=== PATIENT | female | born 1955 ===

== ENCOUNTER 2020-09-10 16:38 | Emergency (ER) | payer MEDICARE, SELFPAY ==
[2020-09-10] VITALS (9 sets, daily range): BP systolic 89–124; BP diastolic 38–62; PULSE 60–73; RESP 13–37; TEMP 36.3; O2SAT 96–99
--- NOTE | 2020-09-10 16:55 | ED.GENADUL_ITS ---
Discharge Plan Disposition Patient Disposition: HOME Condition: Stable Discharge Details Clinical Impression: Flank pain Primary Care Provider: Unknown,Unknown ED Provider: Michelle Calzada Home Meds and New Rx's Prescriptions: New oxycodone-acetaminophen [Percocet] 5-325 mg tablet 1 tab PO Q6H PRN (Reason: pain) Qty: 7 RF: 0 Continued lisinopril 20 mg Tablet 20 mg PO DAILY RF: 0 clonazepam [Klonopin] 1 mg Tablet 1 mg PO BID RF: 0 dicyclomine 20 mg Tablet 20 mg PO TID RF: 0 metoprolol tartrate 50 mg Tablet 50 mg PO BID RF: 0 duloxetine [Cymbalta] 60 mg Capsule,Delayed Release(Dr/Ec) 120 mg PO DAILY RF: 0 cholecalciferol (vitamin D3) [Vitamin D3] 50 mcg (2,000 unit) Tablet 150 mcg PO DAILY RF: 0 Discharge Instructions Instructions: Flank Pain (ED) Additional Instructions: Follow up with primary care provider in 3-5 days. Return to ED sooner if any worsening or concerns. Increase oral fluids. To the CT showed that there was no definite mass seen in the pancreas. There was a 2 cm simple cyst in the right kidney and a 1.2 cm simple cyst in the left kidney. It will be reread by our radiologist during business hours. Please be seen sooner for any continued rectal bleeding, worsening pain or any concerns. Please take Tylenol or Ibuprofen with food every 4-6 hours as needed for pain and swelling. Medical Decision Making 64-year-old female usually receives her care at [facility] presents here via EMS due to [facility] diversion with increasing left flank pain and bloody stools. Patient states she has had increased pain for the last 2 to 3 days and worsening bloody stools. She states that she was diagnosed with a pancreatic tumor in May. She does report increased weakness and does not take any pain medications at home. She received 100 mcg of fentanyl by EMS prior to arrival. She has a past medical history of hypertension, anxiety. Exam: CT Abdomen And Pelvis With Contrast Exam date and time: 09/10/2020 6:48 PM Age: 64 years old Clinical indication: Other: Gi bleed; Patient HX: HX of pancreatic tumor COMPARISON: No relevant prior studies available. FINDINGS: Lungs: Bibasilar atelectasis Liver: Normal. No mass. Gallbladder and bile ducts: Normal. No calcified stones. No ductal dilation. Pancreas: No definite mass in the pancreas.. Dilatation of the pancreatic duct Spleen: Normal. No splenomegaly. Adrenal glands: Normal. No mass. Kidneys and ureters: 2 cm simple cyst right kidney. 1.2 cm simple cyst left kidney Stomach and bowel: Unremarkable. No obstruction. No mucosal thickening. Appendix: Normal appendix Intraperitoneal space: Unremarkable. No free air. No significant fluid collection. Vasculature: Unremarkable. No abdominal aortic aneurysm. Lymph nodes: Unremarkable. No enlarged lymph nodes. Urinary bladder: Unremarkable as visualized. Reproductive: Unremarkable as visualized. Bones/joints: There is a bilateral spondylolysis defect of the L5-S1 level, with grade 2 spondylolisthesis Soft tissues: Unremarkable. IMPRESSION: No definite mass in the pancreas. Recommend comparison with prior studies that demonstrated the tumor . There is a bilateral spondylolysis defect of the L5-S1 level, with grade 2 spondylolisthesis. Recommend orthopedic consult Thank you for allowing us to participate in the care of your patient. Dictated and Authenticated by: Nupur Younger MD CBC shows a white blood cell count of 12.50, hemoglobin is 15.5, hematocrit 44.6, PT is 10.4, INR 1.0, sodium 132, potassium 3.6, BUN 13, creatinine 1.10, GFR is 50, glucose is 112 serial troponins less than 0.05. Lipase is 183. Urine is squamous cell contaminated. Discussed CT results and labs with patient. Discussed bilateral cysts noted to the kidneys. No definite mass was seen on the pancreas. Instructed to follow- up in [facility] where she receives her care. Return to the ED for any worsening. Patient verbalized understanding HPI General Mode of arrival: EMS . Date/Time Provider Initiated Documentation: 09/10/20 16:45 . Limitations to Documentation: no limitations . Information obtained by: patient and EMS . HPI Narrative: 64-year-old female usually receives her care at [facility] presents here via EMS due to [facility] diversion with increasing left flank pain and bloody stools. Patient states she has had increased pain for the last 2 to 3 days and worsening bloody stools. She states that she was diagnosed with a pancreatic tumor in May. She does report increased weakness and does not take any pain medications at home. She received 100 mcg of fentanyl by EMS prior to arrival. She has a past medical history of hypertension, anxiety. Related Data Home Medications Medication Instructions Recorded Confirmed cholecalciferol (vitamin D3) 150 mcg PO DAILY 09/10/20 09/10/20 [Vitamin D3] clonazepam [Klonopin] 1 mg PO BID 09/10/20 09/10/20 dicyclomine 20 mg PO TID 09/10/20 09/10/20 duloxetine [Cymbalta] 120 mg PO DAILY 09/10/20 09/10/20 lisinopril 20 mg PO DAILY 09/10/20 09/10/20 metoprolol tartrate 50 mg PO BID 09/10/20 09/10/20 oxycodone-acetaminophen [Percocet] 1 tab PO Q6H PRN #7 tab 09/10/20 Previous Rx's Medication Instructions Recorded oxycodone-acetaminophen [Percocet] 1 tab PO Q6H PRN #7 tab 09/10/20 Allergies Allergy/AdvReac Type Severity Reaction Status Date / Time ketorolac [From Toradol] Allergy Hives Unverified 09/10/20 16:46 metoclopramide [From Reglan] Allergy Psychosis Unverified 09/10/20 16:46 promethazine [From Phenergan] Allergy Psychosis Unverified 09/10/20 16:46 General Stated Complaint: Abd Prob NATALIE: 2 Review of Systems Narrative: Constitutional: Negative for weight loss, alert and oriented, well groomed, normal body habitus, appears comfortable. Positive generalized weakness. HEENT: Denies trauma, headaches, blurry vision, nasal discharge, sore throat, trouble swallowing. Chest: Denies chest pain, palpitations, irregular rhythm, hypertension. Respiratory: Denies Shortness of breath, cough, hemoptysis. GI: Denies abdominal pain, nausea, vomiting, diarrhea, constipation. : Denies dysuria, hematuria, positive left flank pain positive rectal bleeding. Neuro: Denies dizziness, blurry vision, syncope, headache or facial numbness. Hematologic: Denies easy bruising, intolerance to heat or cold, hair loss. [facility] Social History Smoking/Tobacco Use Status: Current every day Smoking risk assessment performed?: Yes Alcohol Intake: never Substance use type: does not use Do you feel safe at home: Yes Do you feel safe in your relationship?: Yes Exam Narrative Exam Narrative: Constitutional: Alert and oriented x3. Appears stated age. Normal body habitus. Head: Normocephalic, no trauma. Eyes: Pupils PERRLA, Red reflex noted, EOM's intact. Eyelids symmetrical without lesions, discharge, or swelling. ENT: Bilateral TM's WNL, External ear normal to inspection, no mastoid TTP, swelling, or erythema, Nasal turbinates WNL, no nasal discharge. Normal dentition, Posterior pharynx WNL, no exudate. Chest: RRR, Normal S1, S2, distal pulses intact. Resp: Lungs clear to auscultation bilaterally, no wheezes, rales, or rhonchi. Abdomen: Left upper quadrant abdominal tenderness with palpation. Abdomen is soft. Musculoskeletal: Normal gait, 5/5 strength to all four extremities. Skin: No suspicious rashes or lesions. Capillary refill less than 2 sec. Neurologic: Cranial nerves II-XII intact. Alert and oriented x 3. DTR's intact. Hematologic/Lymphatic: No ecchymosis, no lymphadenopathy. Course Vital Signs Vital signs: Vital Signs Temperature 36.3 C L 09/10/20 16:39 Pulse 73 09/10/20 16:39 Respiratory Rate 16 09/10/20 16:39 Blood Pressure 119/56 L 09/10/20 16:39 Pulse Oximetry 96 09/10/20 16:39 Temperature 36.3 C L 09/10/20 16:39 Temperature Source Skin 09/10/20 16:39 Pulse 73 09/10/20 16:39 Respiratory Rate 16 09/10/20 16:39 Respiratory Effort Non-Labored 09/10/20 16:48 Blood Pressure 119/56 L 09/10/20 16:39 Blood Pressure Position Sitting 09/10/20 16:39 Pulse Oximetry 96 09/10/20 16:39 Oxygen Delivery Method Room Air 09/10/20 16:39 Oxygen Flow Rate 0 09/10/20 16:39 Pain Level 4 09/10/20 16:48
--- NOTE | 2020-09-10 17:00 | DI.CT_ITS ---
EXAM: CT ABDOMEN PELVIS W CLINICAL HISTORY: Hx of pancreatic tumor, GI bleed. TECHNIQUE: Imaging Protocol: Axial computed tomography images with coronal and sagittal reformatted images were created and reviewed CONTRAST MATERIAL: Intravenous: Omnipaque 350 Contrast volume:77 cc Oral: no COMPARISON: No exams were available for comparison FINDINGS: ABDOMEN: Lung Bases: Minimal dependent changes. Liver: Normal density. No measurable mass. Gallbladder and biliary tract: No radiodense calculus or dilation. Pancreas: Normal density, no abnormal calcifications or inflammatory process. Mild dilatation of the pancreatic duct. No mass is visible. There is slight motion at the level of the pancreas. Spleen: Normal. Kidneys: Normal size, contour and axis. No radiodense stones or obstructive uropathy. No masses seen. Small bilateral cysts. Adrenal glands: No masses seen. Abdominal Aorta: Abdominal portion non-dilated. Atherosclerotic changes. Bowel: Stomach is nearly empty. There is a diverticulum of the duodenal sweep. PELVIS: Bladder: Symmetric distention, no gross wall thickening. Bowel: No significant stool. There is fluid in the right side of the colon which is not abnormally d istended. No obstruction or bowel wall thickening. Normal appendix. Peritoneal cavity: No ascites, collection or mesenteric inflammatory response. Bones: Chronic appearing bilateral L5 spondylolysis and grade 2 L5-S1 spondylolisthesis. Reproductive organs: Within normal limits. Lymph nodes: Unremarkable. Impression: Small duodenal diverticulum. Mild dilatation of the pancreatic duct. No pancreatic mass is identifi ed. RADIATION DOSE DELIVERED: 700.06mGy.cm Total DLP DATA REPOSITORY: All CT scans at this facility are submitted to the National Radiology Data Registry (NRDR) Dose Index Registry (DIR) with the [employer] ([employer]). RADIATION OPTIMIZATION: All CT scans at this facility use at least one of these dose optimization te chniques: automated exposure control; mA and/or kV adjustment per patient size (includes targeted exa ms where dose is matched to clinical indication); or iterative reconstruction.
[2020-09-10] MEDS: Normal Saline 1,000 ML 1000 ML IV (17:19)
[2020-09-10 17:25] LABS: Abs Immature Grans 0.03 10^3/uL (0.0-0.06); HCT 44.6 % (36.0-46.0); HGB 15.5 g/dL (11.2-15.7); MCH 31.3 pg (27.0-33.0); MCHC 34.8 % (32.0-36.0); MCV 89.9 fL (80-95); MPV 9.4 fL (8.0-11.0); Nucleated RBC 0 %; Platelet Count 346 10^3/uL (130-400); RBC 4.96 10^6/uL (3.93-5.22); RDW 12.4 % (11.7-14.6); RDW-SD 40.9 fL
[2020-09-10 17:29] LABS: Prothrombin Time 10.4 sec (9.3-11.0)
[2020-09-10 17:34] LABS: ALT 20 U/L (14-59); AST 18 U/L (15-37); Alkaline Phosphatase 88 U/L (46-116); Anion Gap 9.5 mmol/L (3-11); BUN 13 mg/dL (7-18); Bilirubin, Total 0.6 mg/dL (0.2-1.0); CO2 23.5 mmol/L (21.0-32.0); Calcium 9.8 mg/dL (8.5-10.1); Chloride 99 mmol/L (98-107); Estimated GFR 50.01 (mL/min/1.73m2); Glucose 112 mg/dL (74-106); Lipase 183 U/L (73-393); Magnesium 1.8 mg/dL (1.8-2.4); Potassium 3.6 mmol/L (3.5-5.1); Sodium 132 mmol/L (136-145); Total Protein 8.6 g/dL (6.4-8.2); Troponin I < 0.05 ng/mL (<0.06)
[2020-09-10 17:54] LABS: Absolute Monocyte Count 0.75 10^3/uL (0.1-0.8); Absolute Neutrophil Count 6.25 10^3/uL (1.2-6.7); Atypical Lymphocytes % 3
[2020-09-10 17:55] LABS: Diff Comment Manual Differential; RBC Morphology Normal
[2020-09-10] MEDS: LORazepam 2 MG/ML VIAL 0.5 MG IVP (18:18)
[2020-09-10] MEDS: Normal Saline Flush 10 ML SYR IVP ×2 (18:25→18:46)
[2020-09-10] MEDS: Omnipaque 350 MG/ML 100 ML BTL IJ (18:45)
[2020-09-10] MEDS: Normal Saline - Diluent 50 ML VIAL IV (18:45)
[2020-09-10] MEDS: Normal Saline 250 ML IV (19:00)
[2020-09-10] MEDS: fentaNYL 100 MCG/2 ML VIAL 50 MCG IVP (19:27)
--- NOTE | 2020-09-10 19:31 | DI.VRAD_ITS ---
PROCEDURE INFORMATION: Exam: CT Abdomen And Pelvis With Contrast Exam date and time: 09/10/2020 6:48 PM Age: 64 years old Clinical indication: Other: Gi bleed; Patient HX: HX of pancreatic tumor TECHNIQUE: Imaging protocol: Computed tomography of the abdomen and pelvis with intravenous contrast. Radiation optimization: All CT scans at this facility use at least one of these dose optimization techniques: automated exposure control; mA and/or kV adjustment per patient size (includes targeted exams where dose is matched to clinical indication); or iterative reconstruction. Contrast material: OMNIPAQUE 350; Contrast volume: 77 ml; Contrast route: INTRAVENOUS (IV); COMPARISON: No relevant prior studies available. FINDINGS: Lungs: Bibasilar atelectasis Liver: Normal. No mass. Gallbladder and bile ducts: Normal. No calcified stones. No ductal dilation. Pancreas: No definite mass in the pancreas.. Dilatation of the pancreatic duct Spleen: Normal. No splenomegaly. Adrenal glands: Normal. No mass. Kidneys and ureters: 2 cm simple cyst right kidney. 1.2 cm simple cyst left kidney Stomach and bowel: Unremarkable. No obstruction. No mucosal thickening. Appendix: Normal appendix Intraperitoneal space: Unremarkable. No free air. No significant fluid collection. Vasculature: Unremarkable. No abdominal aortic aneurysm. Lymph nodes: Unremarkable. No enlarged lymph nodes. Urinary bladder: Unremarkable as visualized. Reproductive: Unremarkable as visualized. Bones/joints: There is a bilateral spondylolysis defect of the L5-S1 level, with grade 2 spondylolisthesis Soft tissues: Unremarkable. IMPRESSION: No definite mass in the pancreas. Recommend comparison with prior studies that demonstrated the tumor . There is a bilateral spondylolysis defect of the L5-S1 level, with grade 2 spondylolisthesis. Recommend orthopedic consult Dictated and Authenticated by: Nupur Younger MD. Ordering:GAYATHRI Martinez MD
[2020-09-10 19:59] LABS: Bilirubin Negative (Negative); Blood Trace-lysed (Negative); Clarity Sl Cloudy (Clear); Glucose Negative (Negative); Ketones Negative (Negative); Leukocyte Esterase Small (Negative); Nitrite Negative (Negative); Specific Gravity <= 1.005 (1.005-1.025); Urobilinogen 0.2 EU/dL (Up TO 0.2); pH 5.5 (5-8)
[2020-09-10 20:05] LABS: RBC 0-2 HPF (0-2)
[2020-09-10 20:06] LABS: Bacteria Moderate HPF (Negative); C & S Indicated? No/Sq. Contamination; Casts Negative LPF (Negative); Crystals Negative HPF (Negative); Epithelial Cells Many HPF (Negative); Mucus Negative (Negative)
[2020-09-10 20:34] LABS: Troponin I < 0.05 ng/mL (<0.06)
== END 2020-09-10 21:05 | disposition home or self-care (01) ==
PROVIDERS: Emergency Provider Registered Nurse Emergency
DX: R10.12 Left upper quadrant pain (principal); K92.1 Melena; I10 Essential (primary) hypertension
CPT/HCPCS: 36415; 80053; 83690; 86850; 86900; 86901; 96361; 96374; 96375; 99285; 74177; 81003; 81015; 83735; 84484; 85025; 85610; 99284; J2060; J3010; J3490